=== PATIENT | female | born 1980 | race Caucasian/White ===

== ENCOUNTER 2021-07-27 07:41 | Inpatient (IN) | payer MEDICAID ==
[2021-07-19 16:00] LABS: BASOPHILS # (AUTO) 0.1 X10'3 (0-0.2); BASOPHILS % (AUTO) 0.9 % (0-1); EOSINOPHILS # (AUTO) 0.1 X10'3 (0-0.9); EOSINOPHILS % (AUTO) 1.1 % (0-6); LYMPHOCYTES # (AUTO) 2.3 X10'3 (1.1-4.8); LYMPHOCYTES % (AUTO) 28.9 % (21-51); MEAN CORPUSCULAR HEMOGLOBIN 31.3 PG (27.0-31.0); MEAN CORPUSCULAR HGB CONC 33.6 g/dL (33.0-36.5); MEAN CORPUSCULAR VOLUME 93.2 FL (78-98); MEAN PLATELET VOLUME 7.8 FL (7.4-10.4); MONOCYTES # (AUTO) 0.4 X10'3 (0-0.9); MONOCYTES % (AUTO) 5.4 % (2-12); NEUTROPHILS # (AUTO) 5.1 X10'3 (1.8-7.7); NEUTROPHILS % (AUTO) 63.7 % (42-75); PRE OP HEMATOCRIT 44.1 % (35.0-45.0); PRE OP HEMOGLOBIN 14.8 g/dL (12.0-16.0); PRE OP PLATELET COUNT 400 X10'3 (140-440); RED BLOOD COUNT 4.73 X10'6 (4.20-5.60); RED CELL DISTRIBUTION WIDTH 13.5 % (11.5-14.5)
[2021-07-19 16:02] LABS: CLARITY,URINE SLIGHTLY CLOUDY (Clear); COLOR,URINE Straw (Yellow); GLUCOSE, URINE NEGATIVE (Neg); KETONES,URINE NEGATIVE (Neg); NITRITES, URINE NEGATIVE (Neg); OCCULT BLOOD,URINE NEGATIVE (Neg); PROTEIN,URINE NEGATIVE (Neg); UA COLLECTION TYPE CLN CATCH MIDSTREAM; UROBILINOGEN,URINE 0.2 E.U/dL (0.2-1.0)
[2021-07-19 16:03] LABS: LEUKOCYTE ESTERASE ,URINE NEGATIVE (Neg)
[2021-07-19 16:11] LABS: BACTERIA,URINE FEW /HPF (Neg); RBC,URINE 0-2 /HPF (0-2); SQUAMOUS EPITHELIAL CELL,UR FEW /LPF (FEW); WBC,URINE 0-4 /HPF (0-4)
[2021-07-19 16:14] LABS: HCG SERUM QL NEGATIVE
[2021-07-19 16:22] LABS: ALBUMIN 3.6 G/DL (3.4-5.0); ALBUMIN/GLOBULIN RATIO 0.9 (1.1-1.5); ALKALINE PHOSPHATASE 74 IU/L (46-116); BLOOD UREA NITROGEN 13 MG/DL (7-18); BUN/CREATININE RATIO 18.1 (6.6-38.0); CALCIUM 8.9 MG/DL (8.5-10.1); CHLORIDE 108 MMOL/L (99-107); CREATININE 0.72 MG/DL (0.40-0.90); PRE OP ALT 26 U/L (30-65); PRE OP ANION GAP 7 (8-16); PRE OP AST 15 U/L (10-37); PRE OP BILIRUB, TOTAL 0.3 MG/DL (0.0-1.0); PRE OP GLUCOSE 91 MG/DL (70-104); PRE OP POTASSIUM 4.2 MMOL/L (3.4-5.1); PRE OP SODIUM 141 MMOL/L (135-145); TOTAL CARBON DIOXIDE 26.5 MMOL/L (24-32); TOTAL PROTEIN 7.5 G/DL (6.4-8.2); eGFR 90 ML/MIN
[2021-07-27] VITALS (27 sets, daily range): BP systolic 112–129; BP diastolic 70–95
[~2021-07-27] VITALS: Ht 152.4 cm; Wt 75.7 kg
[~2021-07-27 07:41] MED LIST: CHOL-35 PO; ZINC50TA67 PO; ceFOXitin 2GM-NS 100mL ADDvant 100 ML IV ONE; famotidine 20mg tablet PO ONE; ringers solution, lacted 1,000 ML IV SCH
[2021-07-27] MEDS ORDERED: BUPIVAcaine/PF 2.5 mg/ml (0.25%) 30ml vial ONE (09:34)
[2021-07-27] MEDS ORDERED: epiNEPHrine 1 mg/ml inj ONE (09:34)
[2021-07-27] MEDS ORDERED: vasoPRESSIN 20 units/ml inj. ONE ×2 (09:35→11:31)
[2021-07-27] MEDS ORDERED: midazolam 1 mg/ML 2ml injection ONE (11:04)
[2021-07-27] MEDS ORDERED: fentaNYL /PF 50mcg/ml 5ml ampule ONE (11:14)
[2021-07-27] MEDS ORDERED: morphine 2 MG/ML inj. syringe IV PRN (11:40)
[2021-07-27] MEDS ORDERED: morphine 4 MG/ML inj SYRINge IV PRN (11:40)
[2021-07-27] MEDS ORDERED: ringers solution, lacted 1,000 ML IV SCH (11:40)
[2021-07-27] MEDS ORDERED: meperidine/PF 25mg/ml syringe IV PRN ×2 (11:40)
[2021-07-27] MEDS ORDERED: proCHLORperazine 10 MG/2 ml inj IV PRN (11:40)
[2021-07-27] MEDS ORDERED: ondansetron/PF 4mg/2ml inj IV PRN ×2 (11:40→12:40)
[2021-07-27] MEDS ORDERED: BUPIVAcaine/PF 2.5mg/ml (0.25%) 10ml vial ONE (11:43)
[2021-07-27] MEDS ORDERED: BUPIVACAINE liposomal/PF 13.3 MG/ML vial IM ONE (11:44)
[2021-07-27] MEDS ORDERED: HYDROcodone/acetaminophen 10/325mg tab PO PRN (12:40)
[2021-07-27] MEDS ORDERED: normal saline 500ml IV soln 500 ML IV PRN (12:40)
[2021-07-27] MEDS ORDERED: diphenhydrAMINE 50 mg/ml inj IV PRN (12:40)
[2021-07-27] MEDS ORDERED: temazepam 15mg capsule PO PRN (12:40)
[2021-07-27] MEDS ORDERED: metoclopramide 5 mg/ml inj IV PRN (12:40)
[2021-07-27] MEDS ORDERED: magnesium hydroxide 30ml (MOM) UD suspension PO PRN (12:40)
[2021-07-27] MEDS ORDERED: LORazepam 2 mg/ml vial IV PRN (12:40)
--- NOTE | 2021-07-27 12:45 | NUR ---
Received from OR via , accompanied by Anesthesiologist DR ZHENG and report given by Anesthesiolgist. AWAKENS TO VOICE. VITALS STABLE. INC DI. C/O SEVERE ABD PAIN. WILL MEDICATE. ABD SOFT. MORGAN WITH CLEAR URINE.
[2021-07-27] MEDS ORDERED: glycopyrrolate 0.2mg/ml inj ONE (12:48)
[2021-07-27] MEDS ORDERED: ondansetron/PF 4mg/2ml inj ONE (12:48)
[2021-07-27] MEDS ORDERED: LIDOcaine 2% (20mg/ml) 5ml vial ONE (12:48)
[2021-07-27] MEDS ORDERED: dexamethasone sod phosphate 4mg/ml inj. ONE (12:48)
[2021-07-27] MEDS ORDERED: propofol inj 20 ML IV ONE (12:48)
[2021-07-27] MEDS ORDERED: acetaminophen 1,000mg/100ml IV 100 ML IV ONE (12:48)
[2021-07-27] MEDS ORDERED: rocuronium 10mg/ml inj IV ONE (12:48)
[2021-07-27] MEDS ORDERED: neostigmine methylsulfate 1 MG/ML 10ml vial ONE (12:48)
[2021-07-27] MEDS: meperidine/PF 25mg/ml syringe IV PRN ×2 (13:18→16:24)
[2021-07-27] MEDS ORDERED: ceFOXitin 1 GM/D5W 50mL IVPB 50 ML IV SCH (16:00)
--- NOTE | 2021-07-27 16:25 | NUR ---
Report called to receiving nurse. Transferred via BED Belongings . Special Issues communicated to receiving nurse. AWAKE AND ORIENTED. VITALS STABLE. DRESSING DI. STATES PAIN IMPROVING. TO SURGICAL RM 355A AT THIS TIME. WAS IN RECOVERY FOR SO LONG DUE TO NO SURGICAL BED AVAILABLE.
--- NOTE | 2021-07-27 16:45 | NUR ---
Patient in room PAS IN 900. I have received report from refinery operator light ends recovery and had the opportunity to ask questions and assume patient care.
[2021-07-27] MEDS: ringers solution, lacted 1,000 ML IV SCH ×2 (17:07→20:40)
--- NOTE | 2021-07-27 18:45 | NUR ---
Problems reprioritized. Patient report given, questions answered & plan of care reviewed with randee jeff rn.
--- NOTE | 2021-07-27 18:50 | NUR ---
Patient in room [facility] 355. I have received report from HARRIET DEVLIN and had the opportunity to ask questions and assume patient care.
[2021-07-27] MEDS: ketorolac trometh. 30mg/ml inj. IV PRN (20:31)
[2021-07-27] MEDS: docusate sod 100mg capsule PO SCH (20:31)
[2021-07-27] MEDS: nicotine 7mg patch - 24hr TD SCH (20:39)
[2021-07-28] VITALS: BP 106/73
[2021-07-28] MEDS: ceFOXitin inj 1,000 MG in normal saline 100ml IV soln 100 ML IV SCH ×2 (00:18→08:41)
[2021-07-28] MEDS: HYDROcodone/acetaminophen 10/325mg tab PO PRN ×2 (00:41→14:35)
[2021-07-28] MEDS: ringers solution, lacted 1,000 ML IV SCH ×2 (04:41→12:40)
--- NOTE | 2021-07-28 06:30 | NUR ---
Problems reprioritized. Patient report given, questions answered & plan of care reviewed with THERESE DEVLIN.
[2021-07-28 07:03] LABS: BASOPHILS % (AUTO) 0.4 % (0-1); EOSINOPHILS % (AUTO) 0.4 % (0-6); HEMATOCRIT 39.1 % (35.0-45.0); HEMOGLOBIN 13.3 g/dl (12.0-16.0); LYMPHOCYTES # (AUTO) 1.6 X10'3 (1.1-4.8); LYMPHOCYTES % (AUTO) 17.8 % (21-51); MEAN CORPUSCULAR HEMOGLOBIN 31.5 PG (27.0-31.0); MEAN CORPUSCULAR HGB CONC 34.1 g/dL (33.0-36.5); MEAN CORPUSCULAR VOLUME 92.4 FL (78-98); MEAN PLATELET VOLUME 7.7 FL (7.4-10.4); MONOCYTES # (AUTO) 0.9 X10'3 (0-0.9); MONOCYTES % (AUTO) 9.5 % (2-12); NEUTROPHILS # (AUTO) 6.5 X10'3 (1.8-7.7); NEUTROPHILS % (AUTO) 71.9 % (42-75); PLATELET COUNT 364 X10'3 (140-440); RED BLOOD COUNT 4.23 X10'6 (4.20-5.60); RED CELL DISTRIBUTION WIDTH 13.4 % (11.5-14.5)
[2021-07-28 07:14] LABS: ALBUMIN 2.6 G/DL (3.4-5.0); ANION GAP 7 (8-16); BLOOD UREA NITROGEN 11 MG/DL (7-18); BUN/CREATININE RATIO 15.3 (6.6-38.0); CHLORIDE 109 MMOL/L (99-107); CREATININE 0.72 MG/DL (0.40-0.90); GLUCOSE 112 MG/DL (70-104); SODIUM 139 MMOL/L (135-145); TOTAL CARBON DIOXIDE 23.3 MMOL/L (24-32); eGFR 90 ML/MIN
[2021-07-28 07:38] VITALS: BP 91/56
[2021-07-28] MEDS ORDERED: enoxaparin 40mg/0.4ml syringe SQ SCH (08:00)
[2021-07-28] MEDS: docusate sod 100mg capsule PO SCH (08:45)
[2021-07-28] MEDS: ketorolac trometh. 30mg/ml inj. IV PRN (09:00)
[2021-07-28 11:00] VITALS: BP 100/72
[2021-07-28] MEDS: nicotine 7mg patch - 24hr TD SCH (12:48)
--- NOTE | 2021-07-28 15:10 | NUR ---
DISCHARGE NOTE: Reviewed discharge paperwork with pt. Discussed discharge medications- Excelsior has already been prescribed by Yanick's office and pt. has those at home. She is aware of possible ASE and knows not to drive while taking these medications. Written post op information provided for specific surgery and pt. had ample opportunities to ask questions. She is aware to f/u with [facility] and her PCP, contact information provided in paperwork. IV DC'd, cannula intact, no s/sx bleeding noted, pressure bandage applied. Pt's friend Jose drove from [place] to give the pt. a ride home. Pt. escorted out of hospital by hospital staff member with all of her belongings.
[2021-07-28] MEDS ORDERED: lactobacillus rhamnosus 10,000 MMU CELLS/CAPSULE PO SCH (20:00)
[2021-07-29] MEDS ORDERED: cholecalciferol (vitamin D3) 1,000 unit (25mcg) tablet PO SCH (08:00)
[2021-07-29] MEDS ORDERED: zinc sulfate 220mg capsule PO SCH (08:00)
== END 2021-07-28 15:19 | disposition home or self-care (01) | DRG 519 ==
LOC: UNDOADMIN 07:41 → PAS IN 07:41 → SUR 3N 16:55
PROVIDERS: ADMIT Obstetrics & Gynecology Obstetrics; ATTEND Obstetrics & Gynecology Obstetrics
PROC: 0UT90ZZ Resection of Uterus, Open Approach (ICD-10-PCS; 2021-07-27)
PROC: 3E0T3BZ Introduction of Anesthetic Agent into Peripheral Nerves and Plexi, Percutaneous Approach (ICD-10-PCS; 2021-07-27)
PROC: 3E0T33Z Introduction of Anti-inflammatory into Peripheral Nerves and Plexi, Percutaneous Approach (ICD-10-PCS; 2021-07-27)
PROC: 0UT70ZZ Resection of Bilateral Fallopian Tubes, Open Approach (ICD-10-PCS; principal; 2021-07-27 10:00)
DX: D25.9 Leiomyoma of uterus, unspecified (principal); E78.5 Hyperlipidemia, unspecified; F32.A Depression, unspecified; I10 Essential (primary) hypertension; F41.9 Anxiety disorder, unspecified; N92.1 Excessive and frequent menstruation with irregular cycle; N94.6 Dysmenorrhea, unspecified; N94.10 Unspecified dyspareunia
CPT/HCPCS: 36415; 71046; 80048; 80053; 81001; 82948; 84703; 85025; 86885; 86900; 86901; 87081; A4618; A7000; C1758; C9290; G0378; J0131; J0171; J0694; J1100; J1650; J1885; J2001; J2060; J2175; J2250; J2270; J2405; J2704; J2710; J3010; J3490; J7120; U0003; U0005